=== PATIENT | female | born 1980 | race Caucasian/White ===

== ENCOUNTER 2018-06-30 18:34 | Emergency (ER) | payer OTHER ==
[~2018-06-30] VITALS: Ht 149.8 cm; Wt 104.3 kg
--- NOTE | ~2018-06-30 | EKG ---
[place], [place] ELECTROCARDIOGRAM REPORT NAME: PARAS LOO UNIT #: [id number] ROOM: DOCTOR: EPIPHANY DRAFT REPORT BIRTHDATE: [birth year] [facility] Test Date: 2018-06-30 Test Time: 19:38:47 Pat Name: PARAS LOO Department: ER Room: 6 Gender: F [employer] Technician: Laura Steele : 1980 Requested By: JANETTE MAKI Order Number: [id number] Reading MD: Paige Alvarado MD Measurements Intervals [place] Rate: 57 P: 35 ID: [id number] QRS: 11 QRSD: 72 T: 30 QT: 584 QTc: 569 Interpretive Statements Sinus rhythm Borderline T abnormalities, anterior leads Prolonged QT interval Baseline wander in lead(s) V1 Electronically Signed On 07-01-2018 14:08:59 PST by Paige Alvarado MD CM:EKGRPT:ELECTROCARDIOGRAM REPORT [id number] JANETTE AGUIAR DRAFT REPORT JANETTE MAKI DO
[~2018-06-30 18:34] MED LIST: ANAPROX DS550 MG PO; BACTRIM DS 8001 TA1 PO; CLARITIN10 MG PO; CLEOCIN150 MG PO; COLACE100 MG PO; DIFLUCAN150 MG PO; ELIMITE 5%60 GM PO; HYDROCODONE BIT1 T11 PO; IRON325 M1 PO; KEFLEX500 MG PO; MACROBID100 M1 PO; MOTRIN600 MG PO; MOTRIN800 MG PO; Motrin,Rufen800 MG PO; NKHM; Nystatin Ointme30 GM T; PERCOCET 325 MG1 TA2 PO; PNV-SELECT1 TAB PO; POLYCILLIN PO; PYRIDIUM200 M1 PO; Percocet 325 MG1 TAB PO; SEPTRA DS 800 M1 TAB PO; ZITHROMAX250 MG PO
[2018-06-30 19:25] LABS: BASO # 0.1 10*3/uL (0.0-0.1); BASO % 0.4 % (0.0-1.0); EOS # 0.2 10*3/uL (0.0-0.4); EOS % 1.3 % (1.0-4.0); HEMATOCRIT 37.8 % (37.0-47.0); HEMOGLOBIN 12.3 g/dl (12.0-16.0); LYMPH # 2.5 10*3/uL (1.3-4.4); LYMPH % 21.8 % (27.0-41.0); MEAN CELL VOLUME 81.6 fl (81.0-99.0); MEAN CORPUSCULAR HGB 26.6 pg (27.0-31.0); MEAN CORPUSCULAR HGB CONC 32.5 g/dl (33.0-37.0); MEAN PLATELET VOLUME 10.1 fl (9.6-12.3); MONO # 0.9 10*3/uL (0.1-1.0); MONO % 8.1 % (3.0-9.0); NEUT # 7.8 10*3/uL (2.3-7.9); NEUT % 68.1 % (47.0-73.0); PLATELET COUNT AUTOMATED 237 10*3/uL (130-400); RED BLOOD COUNT 4.63 10*6/uL (4.10-5.10); RED CELL DISTRI WIDTH 13.2 % (0-14.5); WHITE BLOOD COUNT 11.4 10*3/uL (4.8-10.8)
[2018-06-30 19:44] LABS: ALBUMIN 3.4 gm/dl (3.1-4.5); ALKALINE PHOSPHATASE 77 U/L (45-117); BUN 5 mg/dl (7-24); CHLORIDE 108 mmol/L (98-107); CREATININE 0.86 mg/dL (0.55-1.02); POTASSIUM 3.2 mmol/L (3.5-5.1); SGOT/AST 12 IU/L (3-35); SGPT/ALT 13 U/L (12-78); SODIUM 141 mmol/L (136-145)
[2018-06-30 19:45] LABS: ACETAMINOPHEN (TYLENOL) < 5.0 ug/ml (10-30)
[2018-06-30 19:46] LABS: BETA-HCG, QUANT < 1.0 mIU/mL (1-3); ETHYL ALCOHOL < 3.0 mg/dl (<3); TROPONIN I < 0.015 ng/ml (<0.045)
[2018-06-30 20:17] LABS: BILIRUBIN NEGATIVE (NEGATIVE); BLOOD NEGATIVE (NEGATIVE); CLARITY CLEAR (CLEAR); COLOR YELLOW (YELLOW); GLUCOSE NEGATIVE (NEGATIVE); KETONE NEGATIVE (NEGATIVE); LEUKO ESTERASE NEGATIVE (NEGATIVE); NITRITE NEGATIVE (NEGATIVE); UROBILINOGEN 0.2 E.U./dl (0.2-1.0)
[2018-06-30 20:25] LABS: URINE AMPHETAMINES < 1000 (1000ng/ml); URINE BARBITURATES < 200 (200ng/ml); URINE BENZODIAZEPINES < 200 (200ng/ml); URINE CANNABINOIDS (THC) < 50 (50ng/ml); URINE COCAINE < 300 (300ng/ml); URINE METHADONE < 300 (300ng/ml); URINE OPIATES < 300 (300ng/ml)
[2018-06-30 20:30] LABS: BACTERIA 2+; RBC 0-2 rbc/hpf (0-2)
[2018-06-30 20:31] LABS: URINE PHENCYCLIDINE < 25 (25ng/ml)
== END 2018-06-30 22:32 | disposition left against medical advice (07) ==
LOC: ED 18:34
PROVIDERS: Student in an Organized Health Care Education/Training Program
DX: R56.9 Unspecified convulsions (principal); R32 Unspecified urinary incontinence; R42 Dizziness and giddiness; Z88.0 Allergy status to penicillin; Z79.899 Other long term (current) drug therapy; Z90.49 Acquired absence of other specified parts of digestive tract

== ENCOUNTER 2020-04-20 10:25 | Emergency (ER) | payer OTHER ==
[2020-04-20] MEDS ORDERED: NAPROSYN500 MG PO (10:43)
[2020-04-20] MEDS ORDERED: CLINDAMYCIN HC300 MG PO (10:43)
== END 2020-04-20 10:50 | disposition home or self-care (01) ==
LOC: ED 10:25
DX: L03.011 Cellulitis of right finger (principal)

== ENCOUNTER 2020-05-14 11:44 | Emergency (ER) | payer OTHER ==
[~2020-05-14] VITALS: Wt 46.7 kg
[~2020-05-14 11:44] MED LIST changes: +CLINDAMYCIN HC300 MG PO; +NAPROSYN500 MG PO
== END 2020-05-14 15:15 | disposition home or self-care (01) ==
LOC: ED 11:44
DX: K59.00 Constipation, unspecified (principal); Z88.0 Allergy status to penicillin

== ENCOUNTER → 2020-05-23 | Outpatient (CLI) | payer OTHER | END | disposition home or self-care (01) | LOC: RESCLI 00:45 | PROVIDERS: ATTEND Internal Medicine Nephrology | DX: Z12.4 Encounter for screening for malignant neoplasm of cervix (principal); Z13.31 Encounter for screening for depression; Z13.220 Encounter for screening for lipoid disorders; Z23 Encounter for immunization; L03.019 Cellulitis of unspecified finger; F17.220 Nicotine dependence, chewing tobacco, uncomplicated; F10.10 Alcohol abuse, uncomplicated; R63.4 Abnormal weight loss; Z76.89 Persons encountering health services in other specified circumstances ==

== ENCOUNTER → 2021-08-09 | Outpatient (CLI) | payer OTHER ==
[2021-08-09 09:44] LABS: BASO # 0.1 10*3/uL (0.0-0.1); BASO % 0.6 % (0.0-1.0); EOS # 0.2 10*3/uL (0.0-0.4); EOS % 3.1 % (1.0-4.0); HEMATOCRIT 41.3 % (37.0-47.0); LYMPH # 2.8 10*3/uL (1.3-4.4); LYMPH % 35.1 % (27.0-41.0); MEAN CELL VOLUME 80.5 fl (81.0-99.0); MEAN CORPUSCULAR HGB 26.7 pg (27.0-31.0); MEAN CORPUSCULAR HGB CONC 33.2 g/dl (33.0-37.0); MEAN PLATELET VOLUME 9.6 fl (9.6-12.3); MONO # 0.7 10*3/uL (0.1-1.0); MONO % 9.3 % (3.0-9.0); NEUT % 51.6 % (47.0-73.0); PLATELET COUNT AUTOMATED 254 10*3/uL (130-400); RED BLOOD COUNT 5.13 10*6/uL (4.10-5.10); RED CELL DISTRI WIDTH 13.2 % (0-14.5); WHITE BLOOD COUNT 7.8 10*3/uL (4.8-10.8)
[2021-08-09 10:25] LABS: ALBUMIN 3.4 gm/dl (3.1-4.5); ALKALINE PHOSPHATASE 109 U/L (45-117); BUN 9 mg/dl (7-24); CHLORIDE 103 mmol/L (98-107); CHOLESTEROL 182 mg/dL (<200); CREATININE 0.64 mg/dL (0.55-1.02); FREE T4 0.85 ng/dl (0.76-1.46); LDL CHOLESTEROL 71 mg/dL (9-159); SGOT/AST 8 IU/L (3-35); SGPT/ALT 17 U/L (12-78); SODIUM 134 mmol/L (136-145); TOTAL PROTEIN 7.4 gm/dL (6.4-8.2); TRIGLYCERIDES 183 mg/dl (<150)
== END | disposition home or self-care (01) ==
LOC: LAB 09:25
PROVIDERS: ATTEND Internal Medicine
DX: Z13.220 Encounter for screening for lipoid disorders (principal); E11.9 Type 2 diabetes mellitus without complications; Z13.21 Encounter for screening for nutritional disorder; E55.9 Vitamin D deficiency, unspecified; Z00.00 Encounter for general adult medical examination without abnormal findings

== ENCOUNTER → 2021-11-18 | Outpatient (CLI) | payer OTHER ==
[2021-11-18 12:40] LABS: BASO # 0.1 10*3/uL (0.0-0.1); BASO % 0.6 % (0.0-1.0); EOS # 0.2 10*3/uL (0.0-0.4); EOS % 1.6 % (1.0-4.0); HEMATOCRIT 38.2 % (37.0-47.0); LYMPH # 2.2 10*3/uL (1.3-4.4); LYMPH % 22.4 % (27.0-41.0); MEAN CELL VOLUME 81.6 fl (81.0-99.0); MEAN CORPUSCULAR HGB 27.6 pg (27.0-31.0); MEAN CORPUSCULAR HGB CONC 33.8 g/dl (33.0-37.0); MEAN PLATELET VOLUME 9.7 fl (9.6-12.3); MONO # 0.8 10*3/uL (0.1-1.0); MONO % 8.1 % (3.0-9.0); NEUT # 6.7 10*3/uL (2.3-7.9); NEUT % 66.9 % (47.0-73.0); PLATELET COUNT AUTOMATED 317 10*3/uL (130-400); RED BLOOD COUNT 4.68 10*6/uL (4.10-5.10); RED CELL DISTRI WIDTH 13.4 % (0-14.5)
[2021-11-18 13:03] LABS: ALKALINE PHOSPHATASE 111 U/L (45-117); BUN 6 mg/dl (7-24); CHLORIDE 108 mmol/L (98-107); CHOLESTEROL 152 mg/dL (<200); CREATININE 0.56 mg/dL (0.55-1.02); LDL CHOLESTEROL 69 mg/dL (9-159); POTASSIUM 3.1 mmol/L (3.5-5.1); SGOT/AST 9 IU/L (3-35); SGPT/ALT 11 U/L (12-78); SODIUM 140 mmol/L (136-145); T3 UPTAKE 34 % (31-39); TOTAL PROTEIN 7.2 gm/dL (6.4-8.2); TRIGLYCERIDES 89 mg/dl (<150)
[2021-11-18 13:19] LABS: VITAMIN D, 25-HYDROXY 9.5 ng/mL (30-100)
== END | disposition home or self-care (01) ==
LOC: LAB 12:15 → MAMMO 12:15
PROVIDERS: ATTEND Internal Medicine
DX: Z12.31 Encounter for screening mammogram for malignant neoplasm of breast (principal); Z13.89 Encounter for screening for other disorder; Z13.6 Encounter for screening for cardiovascular disorders; Z13.29 Encounter for screening for other suspected endocrine disorder; N63.12 Unspecified lump in the right breast, upper inner quadrant; N63.21 Unspecified lump in the left breast, upper outer quadrant; Z13.0 Encounter for screening for diseases of the blood and blood-forming organs and certain disorders involving the immune mechanism; E11.9 Type 2 diabetes mellitus without complications; E55.9 Vitamin D deficiency, unspecified

== ENCOUNTER 2021-12-16 23:52 | Emergency (ER) | payer OTHER ==
[~2021-12-16] VITALS: Ht 152.4 cm; Wt 108.9 kg
[2021-12-17] MEDS ORDERED: TRAD5TAB1 PO (00:13)
[2021-12-17] MEDS ORDERED: POTASSIUM CHLO20 ME4 PO (00:14)
[2021-12-17] MEDS ORDERED: NOVOLOG FL100 UNIT/2 SC (00:15)
[2021-12-17] MEDS ORDERED: VITAMIN D250 MCG PO (00:15)
[2021-12-17] MEDS ORDERED: PROTONIX40 MG PO (00:15)
[2021-12-17] MEDS ORDERED: LEVEMIR100 UNIT/1 SC (00:16)
[2021-12-17] MEDS ORDERED: RISPERDAL0.5 MG PO (00:16)
[2021-12-17 01:01] LABS: BASO # 0.1 10*3/uL (0.0-0.1); BASO % 0.5 % (0.0-1.0); EOS # 0.1 10*3/uL (0.0-0.4); EOS % 1.4 % (1.0-4.0); HEMATOCRIT 39.2 % (37.0-47.0); LYMPH # 2.2 10*3/uL (1.3-4.4); LYMPH % 22.8 % (27.0-41.0); MEAN CELL VOLUME 83.9 fl (81.0-99.0); MEAN CORPUSCULAR HGB 27.8 pg (27.0-31.0); MEAN CORPUSCULAR HGB CONC 33.2 g/dl (33.0-37.0); MEAN PLATELET VOLUME 10.2 fl (9.6-12.3); MONO # 0.8 10*3/uL (0.1-1.0); MONO % 7.6 % (3.0-9.0); NEUT # 6.6 10*3/uL (2.3-7.9); NEUT % 67.3 % (47.0-73.0); PLATELET COUNT AUTOMATED 230 10*3/uL (130-400); RED BLOOD COUNT 4.67 10*6/uL (4.10-5.10); RED CELL DISTRI WIDTH 13.4 % (0-14.5); WHITE BLOOD COUNT 9.8 10*3/uL (4.8-10.8)
[2021-12-17 01:19] LABS: ALKALINE PHOSPHATASE 127 U/L (45-117); BUN 11 mg/dl (7-24); CHLORIDE 92 mmol/L (98-107); CREATININE 0.84 mg/dL (0.55-1.02); POTASSIUM 4.5 mmol/L (3.5-5.1); SGOT/AST 14 IU/L (3-35); SGPT/ALT 17 U/L (12-78); SODIUM 128 mmol/L (136-145); TOTAL PROTEIN 7.2 gm/dL (6.4-8.2)
== END 2021-12-17 01:14 ==
LOC: ED 23:52
PROVIDERS: Emergency Medicine
DX: E11.65 Type 2 diabetes mellitus with hyperglycemia (principal)

== ENCOUNTER 2022-01-16 21:02 | Inpatient (IN) | payer OTHER ==
[~2022-01-16] VITALS: Ht 152.4 cm; Wt 66.8 kg
[~2022-01-16 21:02] MED LIST changes: +LEVEMIR100 UNIT/1 SC; +NOVOLOG FL100 UNIT/2 SC; +POTASSIUM CHLO20 ME4 PO; +PROTONIX40 MG PO; +RISPERDAL0.5 MG PO; +TRAD5TAB1 PO; +VITAMIN D250 MCG PO
[2022-01-16 21:03] VITALS: BP 115/53
[2022-01-16 21:42] LABS: BASO # 0.1 10*3/uL (0.0-0.1); BASO % 0.6 % (0.0-1.0); EOS # 0.1 10*3/uL (0.0-0.4); EOS % 0.8 % (1.0-4.0); HEMATOCRIT 37.6 % (37.0-47.0); LYMPH # 1.4 10*3/uL (1.3-4.4); LYMPH % 15.5 % (27.0-41.0); MEAN CELL VOLUME 82.3 fl (81.0-99.0); MEAN CORPUSCULAR HGB 27.4 pg (27.0-31.0); MEAN CORPUSCULAR HGB CONC 33.2 g/dl (33.0-37.0); MEAN PLATELET VOLUME 10.1 fl (9.6-12.3); MONO # 0.7 10*3/uL (0.1-1.0); MONO % 7.4 % (3.0-9.0); NEUT % 75.1 % (47.0-73.0); PLATELET COUNT AUTOMATED 244 10*3/uL (130-400); RED BLOOD COUNT 4.57 10*6/uL (4.10-5.10); RED CELL DISTRI WIDTH 13.4 % (0-14.5); WHITE BLOOD COUNT 9.3 10*3/uL (4.8-10.8)
[2022-01-16 21:56] LABS: ABG BASE EXCESS -10.5 mmol/L (-2.0-2.0); ARTERIAL BLOOD GAS PH 7.327 (7.35-7.45); ARTERIAL BLOOD GAS PO2 101.3 (80-90)
[2022-01-16 21:56] LABS: ALKALINE PHOSPHATASE 116 U/L (45-117); BUN 11 mg/dl (7-24); CHLORIDE 98 mmol/L (98-107); CREATININE 1.02 mg/dL (0.55-1.02); POTASSIUM 4.5 mmol/L (3.5-5.1); SGOT/AST 10 IU/L (3-35); SGPT/ALT 14 U/L (12-78); SODIUM 129 mmol/L (136-145); TOTAL PROTEIN 7.4 gm/dL (6.4-8.2)
[2022-01-16 22:13] LABS: BILIRUBIN Negative (Negative); BLOOD Negative (Negative); CLARITY Clear (Clear); COLOR Yellow (Yellow); GLUCOSE 3+ (Negative); KETONE 4+ (Negative); LEUKO ESTERASE Negative (Negative); NITRITE Negative (Negative); SPECIFIC GRAVITY >= 1.030 (1.001-1.030); UROBILINOGEN 0.2 E.U./dl (0.0-1.0)
[2022-01-16 22:47] LABS: WBC 0-2 wbc/hpf (0-5)
[2022-01-16 22:50] VITALS: BP 106/58
[2022-01-17] VITALS (8 sets, daily range): BP systolic 84–110; BP diastolic 42–62
[2022-01-17 06:58] LABS: BUN 7 mg/dl (7-24); CHLORIDE 112 mmol/L (98-107); CREATININE 0.63 mg/dL (0.55-1.02); SODIUM 139 mmol/L (136-145)
[2022-01-17 07:01] LABS: POTASSIUM 3.5 mmol/L (3.5-5.1)
[2022-01-18] VITALS: BP 90/54
[2022-01-18 04:00] VITALS: BP 93/56
[2022-01-18 05:37] LABS: ALKALINE PHOSPHATASE 95 U/L (45-117); BUN 4 mg/dl (7-24); CHLORIDE 110 mmol/L (98-107); CREATININE 0.65 mg/dL (0.55-1.02); POTASSIUM 3.5 mmol/L (3.5-5.1); SGOT/AST 6 IU/L (3-35); SGPT/ALT 11 U/L (12-78); SODIUM 142 mmol/L (136-145); TOTAL PROTEIN 6.2 gm/dL (6.4-8.2)
[2022-01-18 06:09] LABS: BASO # 0.1 10*3/uL (0.0-0.1); BASO % 0.5 % (0.0-1.0); EOS # 0.3 10*3/uL (0.0-0.4); EOS % 2.8 % (1.0-4.0); HEMATOCRIT 33.6 % (37.0-47.0); LYMPH # 3.3 10*3/uL (1.3-4.4); LYMPH % 33.6 % (27.0-41.0); MEAN CELL VOLUME 84.2 fl (81.0-99.0); MEAN CORPUSCULAR HGB 28.1 pg (27.0-31.0); MEAN CORPUSCULAR HGB CONC 33.3 g/dl (33.0-37.0); MEAN PLATELET VOLUME 10.4 fl (9.6-12.3); MONO # 0.9 10*3/uL (0.1-1.0); MONO % 9.2 % (3.0-9.0); NEUT # 5.2 10*3/uL (2.3-7.9); NEUT % 53.4 % (47.0-73.0); PLATELET COUNT AUTOMATED 218 10*3/uL (130-400); RED BLOOD COUNT 3.99 10*6/uL (4.10-5.10); RED CELL DISTRI WIDTH 13.9 % (0-14.5); WHITE BLOOD COUNT 9.8 10*3/uL (4.8-10.8)
[2022-01-18 08:00] VITALS: BP 98/62
[2022-01-18] MEDS ORDERED: TRAD5TAB1 PO (08:00)
[2022-01-18] MEDS ORDERED: POTASSIUM CHLO20 ME4 PO (08:00)
[2022-01-18] MEDS ORDERED: VITAMIN D250 MCG PO (08:00)
[2022-01-18] MEDS ORDERED: SIMVASTATIN20 MG PO (08:00)
[2022-01-18] MEDS ORDERED: PROTONIX40 MG PO (08:00)
[2022-01-18] MEDS ORDERED: LEVEMIR100 UNIT/1 SC (08:00)
[2022-01-18 12:00] VITALS: BP 92/58
== END 2022-01-18 14:02 | DRG 420 ==
LOC: ED 21:02 → ICCU 23:11 → EDHOLD 23:11 → ICCU 23:46
PROVIDERS: Emergency Medicine; ADMIT Internal Medicine; ATTEND Internal Medicine
DX: E11.10 Type 2 diabetes mellitus with ketoacidosis without coma (principal); E78.2 Mixed hyperlipidemia; F31.9 Bipolar disorder, unspecified; K59.00 Constipation, unspecified; Z88.0 Allergy status to penicillin; Z90.49 Acquired absence of other specified parts of digestive tract; Z98.891 History of uterine scar from previous surgery; Z83.3 Family history of diabetes mellitus; Z91.14 Patient's other noncompliance with medication regimen; F41.9 Anxiety disorder, unspecified